=== PATIENT | female | born 1980 | race African-American/Black ===

== ENCOUNTER 2016-09-29 20:17 | Emergency (ER) | payer OTHER ==
[~2016-09-29] VITALS: Ht 165.1 cm; Wt 107.0 kg
--- NOTE | 2016-09-29 20:19 | ED DYSPNEA/ASTHMA COMPLAINT ---
See Addendum History of Present Illness General Chief Complaint: Dyspnea (COPD, CHF, Other) Stated Complaint: SOB Source: patient Exam Limitations: no limitations Vital Signs & Intake/Output Vital Signs & Intake/Output Vital Signs Date Time Temp Pulse Resp B/P Pulse O2 O2 Flow FiO2 Ox Delivery Rate 09/29 2241 95 20 154/74 100 Room Air 09/29 2017 97.2 110 22 165/72 100 Aerosol 5.0L Mask ED Intake and Output 09/30 0000 09/29 1200 Intake Total 20 Output Total Balance 20 Intake, Oral 20 Patient 236 lb Weight Allergies Coded Allergies: No Known Allergies (09/29/16) Reconcile Medications Albuterol Sulfate (Proventil Hfa) 90 MCG HFA.AER.AD 2 PUF INH AD PRN ASTHMA ( Reported) Albuterol Sulfate (Ventolin Hfa) 90 MCG HFA.AER.AD 2 PUF INH Q4-6 PRN PRN WHEEZE Amlodipine (Norvasc) 2.5 MG TABLET 1 TAB PO DAILY BP (Reported) Fluticasone Propionate/Salme (Advair Hfa 230-21 Mcg Inhaler) (Unknown Strength) HFA.AER.AD (Unknown Dose) INH BID ASTHMA (Reported) Pantoprazole Sodium (Unknown Strength) TABLET.DR (Unknown Dose) PO DAILY GI ( Reported) Prednisone 50 MG TABLET 1 TAB PO DAILY ASTHMA EXACERBATION Triage Nurses Notes Reviewed? yes Onset: Abrupt Duration: hour(s): Timing: single episode today Severity: moderate Activities at Onset: none Prior Episodes/Possible Cause: occasional episodes Modifying Factors: Improves With: rest, other (feels better w/nebs in field). Associated Symptoms: cough, wheezing HPI: 36 yo woman h/o asthma, presents with wheezing and cough that started at approximately 6:30pm. She notes no known exacerbants, except that she [facility]. She denies fever, phlegm, chest pain, lower extremity swelling. With her dyspnea, she called 911, she received 2 nebs en route and is now feeling better. Past History Travel History Traveled to [place] past 21 day No Medical History Any Pertinent Medical History? see below for history Respiratory: asthma Surgical History Surgical History: none Family History Hx Contributory? No Review of Systems Review of Systems Constitutional: Reports: no symptoms. EENTM: Reports: no symptoms. Respiratory: Reports: no symptoms. Cardiovascular: Reports: no symptoms. GI: Reports: no symptoms. Genitourinary: Reports: no symptoms. Musculoskeletal: Reports: no symptoms. Skin: Reports: no symptoms. Neurological/Psychological: Reports: no symptoms. Hematologic/Endocrine: Reports: no symptoms. Immunologic/Allergic: Reports: no symptoms. All Other Systems: Reviewed and Negative Physical Exam Physical Exam General Appearance: well developed/nourished, mild distress Head: atraumatic, normal appearance Eyes: Bilateral: normal appearance. Ears, Nose, Throat: normal pharynx, normal ENT inspection Neck: normal inspection, supple, full range of motion Respiratory: wheezing, prolonged expiratory phase Cardiovascular: regular rate/rhythm Gastrointestinal: normal bowel sounds, soft, non-tender, no organomegaly Extremities: normal inspection Neurologic/Psych: no motor/sensory deficits, awake, alert, oriented x 3 Skin: intact, normal color, warm/dry Core Measures ACS in differential dx? No Severe Sepsis Present: No Septic Shock Present: No Progress Differential Diagnosis: asthma, bronchitis, pneumonia Plan of Care: Orders Procedure Date/time Status XRY-CHEST XRAY, PA AND LATERAL 09/29 2019 Active Current Medications Sig/Valerio Start time Last Medication Dose Stop Time Status Admin Prednisone 60 MG ONCE ONE 09/29 2029 UNVr 09/29 2030 Diagnostic Imaging: Viewed by Me: Radiology Read. Discussed w/RAD: Radiology Read. CXR Impression: no acute abnormality, no infiltrates, normal size heart, normal mediastinum Initial ED EKG: none Comments: PATIENT: JUSTINO CLARKE PRESENT AGE: 36 PATIENT ACCOUNT NO: [id number] : 81 LOCATION: [facility] ORDERING PHYSICIAN: ROCKY JACK MD SERVICE DATE: 09/29/16 EXAM TYPE: RAD - XRY-CHEST XRAY, PA AND LATERAL EXAMINATION: XR CHEST CLINICAL INFORMATION: Dyspnea. COMPARISON: None. TECHNIQUE: PA and lateral views of the chest were obtained. FINDINGS: The lungs are hypoinflated but clear without focal airspace consolidation. No pleural effusions or pneumothoraces are identified. Cardiomediastinal contours are within normal limits. Soft tissues are unremarkable. No acute osseous abnormality is identified. IMPRESSION: Pulmonary hypoinflation. No acute cardiopulmonary abnormality. DICTATED BY: JESSICA WEIR MD DATE/TIME DICTATED:01/07/17 / 2148 RESISTANCE WELDER:LUCAS DATE/TIME TRANSCRIBED:09/29/162147 CONFIDENTIAL, DO NOT COPY WITHOUT APPROPRIATE AUTHORIZATION. <Electronically signed in Other Vendor System> SIGNED BY: JESSICA WEIR MD 09/29/162151 Departure Departure Disposition: HOME OR SELF CARE Condition: Stable Clinical Impression Primary Impression: Asthma exacerbation Departure Forms: Customer Survey General Discharge Information Prescriptions: Current Visit Scripts Prednisone 1 TAB PO DAILY #5 TAB Albuterol Sulfate (Ventolin Hfa) 2 PUF INH Q4-6 PRN PRN WHEEZE #1 INHAL Ref 2 Comments 09/30/16, 0:14... pt feeling well after neb/steroids... I doubt bacterial process... pt unable to get ride back [facility].... Pt to spend night in ED to be discharged in AM. Critical Care Note Critical Care Note Critical Care Time: non-applicable
[2016-09-29] MEDS ORDERED: PROVENTIL HFA6.7 GM INH (20:23)
[2016-09-29] MEDS ORDERED: ADVAIR HFA 230-12 GM INH (20:24)
[2016-09-29] MEDS ORDERED: NORVASC2.5 M1 PO (20:24)
[2016-09-29] MEDS ORDERED: PANTOPRAZOLE SO40 M1 PO (20:25)
--- NOTE | 2016-09-29 21:52 | RADIOLOGY REPORT ---
EXAMINATION: XR CHEST CLINICAL INFORMATION: Dyspnea. COMPARISON: None. TECHNIQUE: PA and lateral views of the chest were obtained. FINDINGS: The lungs are hypoinflated but clear without focal airspace consolidation. No pleural effusions or pneumothoraces are identified. Cardiomediastinal contours are within normal limits. Soft tissues are unremarkable. No acute osseous abnormality is identified. IMPRESSION: Pulmonary hypoinflation. No acute cardiopulmonary abnormality.
[2016-09-29] MEDS ORDERED: PREDNISONE50 M1 PO (23:48)
[2016-09-29] MEDS ORDERED: VENTOLIN HFA18 GM INH (23:48)
[2016-09-30 08:12] VITALS: BP 140/80
== END 2016-09-29 23:30 ==
LOC: ERH 20:17
DX: J45.901 Unspecified asthma with (acute) exacerbation (principal)

== ENCOUNTER 2016-11-02 19:45 | Emergency (ER) | payer OTHER ==
[~2016-11-02] VITALS: Ht 160 cm; Wt 112.0 kg
[~2016-11-02 19:45] MED LIST: ADVAIR HFA 230-12 GM INH; NORVASC2.5 M1 PO; PANTOPRAZOLE SO40 M1 PO; PREDNISONE50 M1 PO; PROVENTIL HFA6.7 GM INH; VENTOLIN HFA18 GM INH
--- NOTE | 2016-11-02 20:13 | ED DYSPNEA/ASTHMA COMPLAINT ---
History of Present Illness General Chief Complaint: Wheezing/Asthma Stated Complaint: BIBA FOR ASTHMA ATTACK Source: patient Exam Limitations: no limitations Vital Signs & Intake/Output Vital Signs & Intake/Output Vital Signs Date Time Temp Pulse Resp B/P Pulse O2 O2 Flow FiO2 Ox Delivery Rate 11/02 2054 93 18 123/60 99 Room Air 11/02 2005 100 Room Air 11/02 1958 97.6 100 20 138/66 100 Room Air ED Intake and Output 11/03 0000 11/02 1200 Intake Total 240 Output Total Balance 240 Intake, Oral 240 Patient 247 lb Weight Allergies Coded Allergies: No Known Allergies (09/29/16) Reconcile Medications Albuterol Sulfate (Ventolin Hfa) 90 MCG HFA.AER.AD 2 PUF INH Q4-6 PRN PRN WHEEZE Albuterol Sulfate 1.25 MG/3 ML VIAL.NEB 1 Vial INH/LIA Q4-6 PRN WHEEZING Amlodipine (Norvasc) 2.5 MG TABLET 1 TAB PO DAILY BP (Reported) Cholecalciferol (Vitamin D3) (Vitamin D) (Unknown Strength) TABLET (Unknown Dose) PO DAILY SUPPLEMENT (Reported) Fluticasone Propionate/Salme (Advair Hfa 230-21 Mcg Inhaler) (Unknown Strength) HFA.AER.AD (Unknown Dose) INH BID ASTHMA (Reported) Methylprednisolone. (Medrol) 4 MG TAB.DS.PK 1 DP PO AD INFLAMMATION 6 on day 1 then reduce by one tablet daily until gone Montelukast Sodium (Singulair) 10 MG TABLET 1 TAB PO DAILY ASTHMA (Reported) Pantoprazole Sodium (Unknown Strength) TABLET.DR (Unknown Dose) PO DAILY GI ( Reported) Sertraline HCl (Zoloft) (Unknown Strength) TABLET (Unknown Dose) PO DAILY MENTAL HEALTH (Reported) Trazodone HCl (Unknown Strength) TABLET (Unknown Dose) PO QPM MENTAL HEALTH ( Reported) Triage Note: PATIENT A&O, NO RESP DISTRESS, MILD SOB Triage Nurses Notes Reviewed? yes Onset: Gradual Duration: constant Timing: single episode today Severity: moderate Activities at Onset: activity Prior Episodes/Possible Cause: frequent episodes : No Patient currently breastfeeds: No HPI: Patient is a 36-year-old female who has a past medical history of asthma who presents to emergency room saying that this evening while eating chicken she states that she began throwing this food up and what had 1 episode of nonbloody nonbilious emesis however immediately after patient started coughing and wheezing in which her symptoms were unrelieved with her at home inhaler and nebulizer treatment Patient denies any abdominal pain fever chills current nausea or vomiting Patient does not smoke (WIL AL) Past History Travel History Traveled to [place] past 21 day No Medical History Any Pertinent Medical History? 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 No (WIL AL) Review of Systems Review of Systems Constitutional: Reports: no symptoms. EENTM: Reports: no symptoms. Respiratory: Reports: see HPI, cough, wheezing. Cardiovascular: Reports: no symptoms. GI: Reports: see HPI, vomiting. Genitourinary: Reports: no symptoms. Musculoskeletal: Reports: no symptoms. Skin: Reports: no symptoms. Neurological/Psychological: Reports: no symptoms. Hematologic/Endocrine: Reports: no symptoms. Immunologic/Allergic: Reports: no symptoms. All Other Systems: Reviewed and Negative (WIL AL) Physical Exam Physical Exam General Appearance: no apparent distress, obese Respiratory: no respiratory distress, wheezing Comments: Well-developed well-nourished person in no acute distress HEENT: Normal EENT exam, . Neck: Supple, no lymphadenopathy, normal range of motion without pain or tenderness Back: Nontender, no CVA tenderness. Cardiovascular: Regular rate and rhythms no murmurs rubs or gallops, normal JVP Respiratory: Chest nontender. No respiratory distress.breath sounds clear to auscultation bilaterally Abdomen: Soft, nontender nondistended, no appreciable organomegaly. Normal bowel sounds. No ascites Extremity: No edema, no calf tenderness to palpation, normal and equal pulses. Neuro: Alert oriented x3, motor sensory normal, Skin: No appreciable rash on exposed skin, skin is warm and dry. Psych: Mood and affect is normal, memory and judgment is normal. Core Measures ACS in differential dx? No Severe Sepsis Present: No Septic Shock Present: No (WIL AL) Progress Differential Diagnosis: asthma, AMI, bronchitis, costochondritis, CHF, COPD, musculoskeletal pain, pericarditis, pulmonary embolism, pneumonia, pneumothorax, rib fracture, unstable angina Plan of Care: Current Medications Sig/Valerio Start time Last Medication Dose Stop Time Status Admin Albuterol Sulfate 3 ML ONCE ONE 11/02 2044 UNVr (Proventil) 11/02 2045 Prednisone 60 MG ONCE ONE 11/02 2044 UNVr 11/02 2045 Patient has nontender abdomen and was able tolerate by mouth in the emergency room. Patient shows no respiratory distress oxygenation saturation 100% room air. Patient was given nebulizer treatments and had significant resolution of wheezing. On discharge patient looks well no apparent distress nontoxic- appearing and will comply with discharge INSTRUCTIONS AND had no questions (WIL AL) Initial ED EKG: none (WIL AL) Departure Departure Disposition: HOME OR SELF CARE Condition: Stable Clinical Impression Primary Impression: Asthma exacerbation Referrals: UNKNOWN (PCP/Family) Additional Instructions: As discussed continue your inhaler medications as directed. Begin the prescription of Medrol Dosepak for inflammation however start this medication tomorrow as he received prednisone in the emergency room today. Begin the prescription of albuterol for nebulizer treatments as directed. If symptoms worsen return to the emergency room. If no better on Saturday follow-up with primary care doctor. Prescription is waiting at [facility] pharmacy Departure Forms: Customer Survey General Discharge Information Prescriptions: Current Visit Scripts Albuterol Sulfate 1 Vial INH/LIA Q4-6 PRN WHEEZING #150 ML Methylprednisolone. (Medrol) 1 DP PO AD #1 DP 6 on day 1 then reduce by one tablet daily until gone (WIL AL) PA/LEGAL DIRECTOR Co-Sign Statement Statement: ED Attending supervision documentation- [] I saw and evaluated the patient. I have also reviewed all the pertinent lab results and diagnostic results. I agree with the findings and the plan of care as documented in the PA's/LEGAL DIRECTOR's documentation. [x] I have reviewed the ED Record and agree with the PA's/LEGAL DIRECTOR's documentation. [] Additions or exceptions (if any) to the PAs/LEGAL DIRECTOR's note and plan are summarized below: [] (GUERO TAYLOR,ROCKY Liu) Critical Care Note Critical Care Note Critical Care Time: non-applicable (WIL AL)
[2016-11-02] MEDS ORDERED: TRAZODONE HCL50 M1 PO (20:16)
[2016-11-02] MEDS ORDERED: ZOLOFT25 M1 PO (20:16)
[2016-11-02] MEDS ORDERED: VITAMIN D2000 UNI1 PO (20:17)
[2016-11-02] MEDS ORDERED: SINGULAIR10 M1 PO (20:17)
[2016-11-02 20:55] VITALS: BP 123/60
[2016-11-02] MEDS ORDERED: ALBUTEROL1.25 MG/1 INH/SOL (21:19)
[2016-11-02] MEDS ORDERED: MEDROL4 M2 PO (21:19)
[2016-11-03] MEDS ORDERED: IBUPROFEN600 M1 PO (16:58)
== END 2016-11-02 21:33 ==
LOC: ERH 19:45
DX: J45.901 Unspecified asthma with (acute) exacerbation (principal)
CPT/HCPCS: 1263

== ENCOUNTER 2016-11-03 15:26 | Emergency (ER) | payer OTHER ==
[~2016-11-03] VITALS: Ht 157.5 cm; Wt 116.1 kg
[~2016-11-03 15:26] MED LIST changes: +ALBUTEROL1.25 MG/1 INH/SOL; +MEDROL4 M2 PO; +SINGULAIR10 M1 PO; +TRAZODONE HCL50 M1 PO; +VITAMIN D2000 UNI1 PO; +ZOLOFT25 M1 PO
[2016-11-03 15:38] VITALS: BP 137/75
--- NOTE | 2016-11-03 15:43 | ED UPPER/LOWER EXTREMITY COMPL ---
History of Present Illness General Chief Complaint: General Adult Stated Complaint: PT RG ARM IS SWOLLEN ,WAS HERE 11/02 FOR IV Source: patient, old records Exam Limitations: no limitations Vital Signs & Intake/Output Vital Signs & Intake/Output Vital Signs Date Time Temp Pulse Resp B/P Pulse O2 O2 Flow FiO2 Ox Delivery Rate 11/03 1538 97.6 93 18 137/75 97 Room Air Allergies Coded Allergies: No Known Allergies (09/29/16) Reconcile Medications Albuterol Sulfate (Ventolin Hfa) 90 MCG HFA.AER.AD 2 PUF INH Q4-6 PRN PRN WHEEZE Albuterol Sulfate 1.25 MG/3 ML VIAL.NEB 1 Vial INH/LIA Q4-6 PRN WHEEZING Amlodipine (Norvasc) 2.5 MG TABLET 1 TAB PO DAILY BP (Reported) Cholecalciferol (Vitamin D3) (Vitamin D) (Unknown Strength) TABLET (Unknown Dose) PO DAILY SUPPLEMENT (Reported) Fluticasone Propionate/Salme (Advair Hfa 230-21 Mcg Inhaler) (Unknown Strength) HFA.AER.AD (Unknown Dose) INH BID ASTHMA (Reported) Ibuprofen 600 MG TABLET 1 TAB PO TID PRN pain with food Methylprednisolone. (Medrol) 4 MG TAB.DS.PK 1 DP PO AD INFLAMMATION 6 on day 1 then reduce by one tablet daily until gone Montelukast Sodium (Singulair) 10 MG TABLET 1 TAB PO DAILY ASTHMA (Reported) Pantoprazole Sodium (Unknown Strength) TABLET.DR (Unknown Dose) PO DAILY GI ( Reported) Sertraline HCl (Zoloft) (Unknown Strength) TABLET (Unknown Dose) PO DAILY MENTAL HEALTH (Reported) Trazodone HCl (Unknown Strength) TABLET (Unknown Dose) PO QPM MENTAL HEALTH ( Reported) Triage Note: 36 YO FEMALE TO ER. STATES SHE WAS SEEN HERE LAST PM FOR ASTHMA ATTACK AND THE DIRECTOR CAREER SERVICES PLACED AN IV IN THE RAC. STATES R ARM IS PAINFUL FROM ELBOW DOWN, STATES ARM IS TINGLING NOW. PT STATES SHE IS UNABLE TO MOVE R ARM D/T THE PAIN Triage Nurses Notes Reviewed? yes Onset: Gradual Duration: getting worse Timing: recent history Severity: severe Severity Numbers: 7 : No Patient currently breastfeeds: No HPI: Patient is a 36-year-old female who was evaluated by me yesterday at [facility] emergency room for concerns of asthma exacerbation which patient received IV access to her right antecubital fossa. Patient states after the removal of the IV she started complaining of a gradual onset of right forearm and distal extremity swelling and pain. Denies any shortness of breath chest pain denies any erythema. No history of DVT or PE. (WIL AL) Past History Travel History Traveled to [place] past 21 day No Medical History Any Pertinent Medical History? 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 No (WIL AL) Review of Systems Review of Systems Constitutional: Reports: no symptoms. EENTM: Reports: no symptoms. Respiratory: Reports: no symptoms. Cardiovascular: Reports: peripheral edema. Gastrointestinal/Abdominal: Reports: no symptoms. Genitourinary: Reports: no symptoms. Musculoskeletal: Reports: see HPI, muscle pain. Skin: Reports: no symptoms. Neurological/Psychological: Reports: no symptoms. Hematologic/Endocrine: Reports: no symptoms. Immunological: Reports: no symptoms. All Other Systems: Reviewed and Negative (WIL AL) Physical Exam Physical Exam General Appearance: no apparent distress, alert, comfortable Neurologic/Tendon: normal sensation, normal motor functions, normal tendon functions, responds to pain, no evidence tendon injury, no pulse deficit Skin: intact, normal color, warm/dry Comments: Well-developed well-nourished no apparent distress. HEENT: Atraumatic, extraocular motion intact Neck: Supple, no lymphadenopathy Back: Nontender Respiratory: No respiratory distress Extremities: Right upper extremity No erythema noted mild swelling noted distally of the elbow no erythematous tracking Dermatomes intact real pulse +2 Capillary refill less than 2 seconds Neuro: Alert and oriented x3 Psych: Mood affect normal, normal memory normal judgment. (WIL AL) Progress Differential Diagnosis: arterial insufficiency, cellulitis, CHF, compartment syndrome, contusion, dislocation, DVT, fracture, gout, septic arthritis, sprain, tendon injury, SUPERFICIAL THROMBOPHLEBITIS Plan of Care: Orders Procedure Date/time Status US-UNILATERAL VENOUS DOPPLER 11/03 3421 Active Patient currently is in no apparent distress and had no concerns of vascular or neurovascular compromise of the right upper extremity. Ultrasound ruled out DVT. Patient most likely due to history of present illness and exam findings has concerns of superficial thrombophlebitis. (WIL AL) Diagnostic Imaging: Viewed by Me: Ultrasound. Radiology Impression: no acute abnormality Comments: PATIENT: JUSTINO CLARKE PRESENT AGE: 36 PATIENT ACCOUNT NO: [id number] : 81 LOCATION: ER ORDERING PHYSICIAN: WIL DENNY SERVICE DATE: 11/03/16 EXAM TYPE: US - US-UNILATERAL VENOUS DOPPLER EXAMINATION: US TRIPLEX UPPER EXTREMITY, RIGHT CLINICAL INFORMATION: Right upper extremity pain, swelling. COMPARISON: None TECHNIQUE: Color-flow triplex imaging with spectral analysis and compression Doppler were performed on the right upper extremity. FINDINGS: The right internal jugular, innominate, subclavian, axillary, brachial, basilic, cephalic veins are widely patent. IMPRESSION: Normal triplex scan without evidence of deep venous thrombosis involving the right upper extremity. (WIL AL) Departure Departure Disposition: HOME OR SELF CARE Condition: Stable Clinical Impression Primary Impression: Superficial thrombophlebitis Referrals: UNKNOWN (PCP/Family) Additional Instructions: As discussed begin the prescription of ibuprofen for pain and inflammation. Begin to elevate arm for swelling. Begin to apply warm compresses to the area. If no better in 3 days follow-up with primary care doctor. If symptoms worsen return to emergency room Prescriptions are waiting at [facility] pharmacy Departure Forms: Customer Survey General Discharge Information Prescriptions: Current Visit Scripts Ibuprofen 1 TAB PO TID PRN pain #21 TAB with food (WIL AL) PA/BILL CLERK Co-Sign Statement Statement: ED Attending supervision documentation- [] I saw and evaluated the patient. I have also reviewed all the pertinent lab results and diagnostic results. I agree with the findings and the plan of care as documented in the PA's/BILL CLERK's documentation. x I have reviewed the ED Record and agree with the PA's/BILL CLERK's documentation. [] Additions or exceptions (if any) to the PAs/BILL CLERK's note and plan are summarized below: [] (CHRIS TAYLOR,JUSTA)
--- NOTE | 2016-11-03 16:46 | ULTRASOUND REPORT ---
EXAMINATION: US TRIPLEX UPPER EXTREMITY, RIGHT CLINICAL INFORMATION: Right upper extremity pain, swelling. COMPARISON: None TECHNIQUE: Color-flow triplex imaging with spectral analysis and compression Doppler were performed on the right upper extremity. FINDINGS: The right internal jugular, innominate, subclavian, axillary, brachial, basilic, cephalic veins are widely patent. IMPRESSION: Normal triplex scan without evidence of deep venous thrombosis involving the right upper extremity.
[2016-11-03] MEDS ORDERED: IBUPROFEN600 M1 PO (16:58)
== END 2016-11-03 18:48 ==
LOC: ERH 15:26
DX: I80.8 Phlebitis and thrombophlebitis of other sites (principal)

== ENCOUNTER 2016-12-11 18:00 | Emergency (ER) | payer OTHER ==
[~2016-12-11] VITALS: Ht 165.1 cm; Wt 115.7 kg
[~2016-12-11 18:00] MED LIST changes: +IBUPROFEN600 M1 PO
[2016-12-11 18:04] VITALS: BP 139/68
--- NOTE | 2016-12-11 18:12 | ED DYSPNEA/ASTHMA COMPLAINT ---
History of Present Illness General Chief Complaint: Wheezing/Asthma Stated Complaint: BIBA FOR ASTHMA ATTACK Source: patient, old records, EMS Exam Limitations: no limitations Vital Signs & Intake/Output Vital Signs & Intake/Output Vital Signs Date Time Temp Pulse Resp B/P Pulse O2 O2 Flow FiO2 Ox Delivery Rate 12/11 1820 96 12/11 1814 99 Room Air 12/11 1810 100 Room Air 12/11 1804 97.6 109 20 139/68 100 Aerosol Mask ED Intake and Output 12/12 0000 12/11 1200 Intake Total Output Total Balance Patient 255 lb Weight Allergies Coded Allergies: No Known Allergies (09/29/16) Reconcile Medications Albuterol Sulfate (Ventolin Hfa) 90 MCG HFA.AER.AD 2 PUF INH Q4-6 PRN PRN WHEEZE Albuterol Sulfate 1.25 MG/3 ML VIAL.NEB 1 Vial INH/LIA Q4-6 PRN WHEEZING Amlodipine (Norvasc) 2.5 MG TABLET 1 TAB PO DAILY BP (Reported) Amoxicillin (Unknown Strength) CAPSULE (Unknown Dose) PO Q12H ANTIBIOTIC ( Reported) Cholecalciferol (Vitamin D3) (Vitamin D) (Unknown Strength) TABLET (Unknown Dose) PO DAILY SUPPLEMENT (Reported) Fluticasone Propionate/[place]me (Advair Hfa 115-21 Mcg Inhaler) 115 MCG-21 MCG/ ACTUATION HFA.AER.AD 2 PUFF INH BID ASTHMA (Reported) Methylprednisolone. (Medrol) 4 MG TAB.DS.PK 1 DP PO AD breathing Montelukast Sodium (Singulair) 10 MG TABLET 1 TAB PO DAILY ASTHMA (Reported) Pantoprazole Sodium (Unknown Strength) TABLET.DR (Unknown Dose) PO DAILY GI ( Reported) Sertraline HCl (Zoloft) (Unknown Strength) TABLET (Unknown Dose) PO DAILY MENTAL HEALTH (Reported) Trazodone HCl (Unknown Strength) TABLET (Unknown Dose) PO QPM MENTAL HEALTH ( Reported) Triage Note: BIBA FOR SOB/ASTHMA EXACERBATION. PT FELT SOB WHILE WALKING HOME FROM WORK. TOOK ALBUTEROL INHALER AND ADVAIR WITH NO RELIEF. PT RECEIVED 2 ALBUTEROL NEBS BY EMS AND FELT BETTER. UPON ARRIVAL PT CALM, IN NAD. 02 99% ON RA Triage Nurses Notes Reviewed? yes HPI: Patient is a 36-year-old female presents complaining of asthma exacerbation. Patient reports that she was at work at 3 PM when she had an acute onset of wheezing and nonproductive cough. Symptoms were severe, currently are mild. Patient used her albuterol inhaler twice with minimal improvement. Patient was administered 2 nebulizer treatments by EMS with moderate improvement. Patient continues with wheezing. Patient reports that she has been hospitalized previously for her asthma and was admitted to the ICU in September 2015 due to the need for continuous nebulizer therapy. Patient has never required intubation for her asthma. Denies fevers, chills, chest pain. (SHERRI WILSON) Past History Travel History Traveled to [place] past 21 day No Medical History Any Pertinent Medical History? 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 No (SHERRI WILSON) Review of Systems Review of Systems Constitutional: Denies: see HPI, fever. EENTM: Reports: no symptoms. Respiratory: Reports: see HPI. Cardiovascular: Denies: chest pain. GI: Denies: abdominal pain, vomiting. Musculoskeletal: Reports: no symptoms. Skin: Reports: no symptoms. Neurological/Psychological: Reports: no symptoms. Hematologic/Endocrine: Reports: no symptoms. Immunologic/Allergic: Reports: no symptoms. (SHERRI WILSON) Physical Exam Physical Exam General Appearance: well developed/nourished, alert, awake Head: atraumatic, normal appearance Eyes: Bilateral: normal appearance, PERRL, EOMI. Ears, Nose, Throat: normal pharynx, normal ENT inspection, hearing grossly normal Neck: normal inspection, supple, full range of motion, no stridor Respiratory: no respiratory distress, expiratory wheezing, minimal diffuse lung singh. Wheezing appears primarily upper airway Cardiovascular: regular rate/rhythm (no appreciable murmur) Extremities: normal inspection, normal capillary refill, normal range of motion Neurologic/Psych: no motor/sensory deficits, awake, alert, oriented x 3, normal mood/affect Skin: intact, normal color, warm/dry Lymphatic: no anterior cervical sebastien Core Measures ACS in differential dx? No Severe Sepsis Present: No Septic Shock Present: No (SHERRI WILSON) Progress Differential Diagnosis: asthma, bronchitis, pulmonary embolism, pneumonia Plan of Care: Current Medications Sig/Valerio Start time Last Medication Dose Stop Time Status Admin Albuterol Sulfate 3 ML ONCE ONE 12/11 1829 UNVr (Proventil) 12/11 1830 Ipratropium [place] 2.5 ML ONCE ONE 12/11 1829 UNVr (Atrovent) 12/11 1830 Methylprednisolone 60 MG ONCE ONE 12/11 1829 UNVr (Solu Medrol) 12/11 183012/11/2016 7:03:34 PM: Patient reports feeling improved. Patient's lungs clear throughout, upper airway wheezing with forced deep exhalation. No wheezing when patient is taking normal breaths. Appears stable for discharge. (SHERRI WILSON) Initial ED EKG: none (SHERRI WILSON) Departure Departure Time of Disposition: 1903 Disposition: HOME OR SELF CARE Condition: Stable Clinical Impression Primary Impression: Asthma exacerbation Referrals: UNKNOWN Additional Instructions: Follow up with your primary doctor or putter in if no improvement within 1-2 days. Use your albuterol inhaler and nebulizer as directed. Return to the ER if worsening of symptoms. Departure Forms: Customer Survey General Discharge Information Prescriptions: Current Visit Scripts Methylprednisolone. (Medrol) 1 DP PO AD #1 DP (SHERRI WILSON) PA/INTEGRITY MANAGER Co-Sign Statement Statement: ED Attending supervision documentation- [] I saw and evaluated the patient. I have also reviewed all the pertinent lab results and diagnostic results. I agree with the findings and the plan of care as documented in the PA's/INTEGRITY MANAGER's documentation. [X] I have reviewed the ED Record and agree with the PA's/INTEGRITY MANAGER's documentation. [] Additions or exceptions (if any) to the PAs/INTEGRITY MANAGER's note and plan are summarized below: [] (MELANY TAYLOR,ERMA) Critical Care Note Critical Care Note Critical Care Time: non-applicable (SHERRI WILSON)
[2016-12-11] MEDS ORDERED: ADVAIR HFA 115-12 GM INH (18:49)
[2016-12-11] MEDS ORDERED: AMOXICILLIN500 M2 PO (18:50)
[2016-12-11] MEDS ORDERED: MEDROL4 M2 PO (19:05)
== END 2016-12-11 19:12 ==
LOC: ERH 18:00
DX: J45.901 Unspecified asthma with (acute) exacerbation (principal)
CPT/HCPCS: 1263; 96374; J2930

== ENCOUNTER 2016-12-26 18:51 | Emergency (ER) | payer OTHER ==
[~2016-12-26] VITALS: Ht 165.1 cm; Wt 111.1 kg
[~2016-12-26 18:51] MED LIST changes: +ADVAIR HFA 115-12 GM INH; +AMOXICILLIN500 M2 PO
[2016-12-26 19:01] VITALS: BP 118/79
[2016-12-26] MEDS ORDERED: CIPRO250 M1 PO (19:32)
--- NOTE | 2016-12-26 19:32 | ED ANKLE/FOOT INJURY COMPLAINT ---
History of Present Illness General Chief Complaint: Plantar Puncture Wound Stated Complaint: "STEPPED ON METAL EVETTE" R FOOT Source: patient Exam Limitations: no limitations Vital Signs & Intake/Output Vital Signs & Intake/Output Vital Signs Date Time Temp Pulse Resp B/P Pulse O2 O2 Flow FiO2 Ox Delivery Rate 12/26 1901 96.4 103 18 118/79 99 Room Air Allergies Coded Allergies: No Known Allergies (09/29/16) Triage Note: PUNCTURE WOUND TO BOTTOM OF R FOOT, STEPPED ON METAL EVETTE. C/O PAIN. NEEDS TETANUS SHOT. Triage Nurses Notes Reviewed? yes Occurred: just prior to arrival Duration: hour(s): (2) Timing: no prior history Severity: moderate Severity Numbers: 5 Pain/Injury Location: Right: Foot. Method of Injury: SHARP OBJECT Modifying Factors: Improves With: immobilization. Worsens With: movement. : No Patient currently breastfeeds: No HPI: Patient is a 36-year-old female presenting to the emergency department with chief complaint puncture wound to the right foot within just a few arthritic. Pain is throbbing currently moderate. Denies taking anything for pain.UNSURE OF Immunization. Denies cleaning the wound prior to arrival. She was wearing sneakers when it through her shoe. (JACQUI DENNY,ZAY) Reconcile Medications Albuterol Sulfate (Ventolin Hfa) 90 MCG HFA.AER.AD 2 PUF INH Q4-6 PRN PRN WHEEZE Albuterol Sulfate 1.25 MG/3 ML VIAL.NEB 1 Vial INH/LIA Q4-6 PRN WHEEZING Amlodipine (Norvasc) 2.5 MG TABLET 1 TAB PO DAILY BP (Reported) Amoxicillin (Unknown Strength) CAPSULE (Unknown Dose) PO Q12H ANTIBIOTIC ( Reported) Cholecalciferol (Vitamin D3) (Vitamin D) (Unknown Strength) TABLET (Unknown Dose) PO DAILY SUPPLEMENT (Reported) Ciprofloxacin HCl (Cipro) 250 MG TABLET 1 TAB PO BID prophylaxis Fluticasone Propionate/[place] (Advair Hfa 115-21 Mcg Inhaler) 115 MCG-21 MCG/ ACTUATION HFA.AER.AD 2 PUFF INH BID ASTHMA (Reported) Ibuprofen 600 MG TABLET 1 TAB PO TID PRN pain with food Methylprednisolone. (Medrol) 4 MG TAB.DS.PK 1 DP PO AD breathing Montelukast Sodium (Singulair) 10 MG TABLET 1 TAB PO DAILY ASTHMA (Reported) Pantoprazole Sodium (Unknown Strength) TABLET.DR (Unknown Dose) PO DAILY GI ( Reported) Sertraline HCl (Zoloft) (Unknown Strength) TABLET (Unknown Dose) PO DAILY MENTAL HEALTH (Reported) Trazodone HCl (Unknown Strength) TABLET (Unknown Dose) PO QPM MENTAL HEALTH ( Reported) (CASEY VARGAS DO) Past History Travel History Traveled to [place] past 21 day No Medical History Any Pertinent Medical History? 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 No (ZAY LEA) Review of Systems Review of Systems Constitutional: Reports: no symptoms. Comments Review of systems: See HPI, all other systems negative. Constitutional, no chills, no fever, no weight loss. HEENT: No visual changes, no sore throat, no congestion, Cardiovascular: No chest pain, no palpitations, no orthopnea, or ankle swelling. Skin: No jaundice, no rashes Respiratory, no dyspnea, cough, sputum, or hemoptysis GI no nausea, no vomiting no dysuria, no hematuria, Muscle skeletal: No back pain, no neck pain Neurologic, no numbness no confusion Psych: No stress, anxiety, depression Heme/endocrine: No bruising, no bleeding polyuria, polydipSIA Immunology: No splenectomy, no history of AIDS (ZAY LEA) Physical Exam Physical Exam General Appearance: well developed/nourished, no apparent distress, alert, awake , comfortable Leg/Knee/Thigh Left: normal range of motion Comments: Well-developed well-nourished no apparent distress. HEENT: Atraumatic, extraocular motion intact Neck: Supple, no lymphadenopathy Back: Nontender Respiratory: No respiratory distress Extremities: No edema, full range of motion SKIN: PUNCTURE WOUND APPROX 5MM ON BALL OF RIGHT FOOT. NO SURROUNDING EREYTHEMA OR EDEMA. NO FB. Neuro: Alert and oriented x3 Psych: Mood affect normal, normal memory normal judgment. (ZAY LEA) Progress Differential Diagnosis: cellulitis, fracture, dislocation, sprain, contusion, PUNCTURE WOUND Plan of Care: Current Medications Sig/Valerio Start time Last Medication Dose Stop Time Status Admin Tetanus/Diphtheria 0.5 ML ONCE ONE 12/26 1929 UNVr Toxoids Adsorbed 12/26 1930 (Decavac) Departure Departure Time of Disposition: 1929 Disposition: HOME OR SELF CARE Condition: Stable Clinical Impression Primary Impression: Puncture wound Referrals: UNKNOWN (PCP/Family) Additional Instructions: Follow-up with your primary care physician call to make an appointment. Keep wound clean, warm soaks daily. Apply bacitracin daily. Take antibiotics to help prevent infection. Departure Forms: Customer Survey General Discharge Information (ZAY LEA) Departure Prescriptions: Current Visit Scripts Ciprofloxacin HCl (Cipro) 1 TAB PO BID #10 TAB Ibuprofen 1 TAB PO TID PRN pain #30 TAB with food PA/LIFE CLAIMS EXAMINER Co-Sign Statement Statement: ED Attending supervision documentation- [] I saw and evaluated the patient. I have also reviewed all the pertinent lab results and diagnostic results. I agree with the findings and the plan of care as documented in the PA's/LIFE CLAIMS EXAMINER's documentation. [x] I have reviewed the ED Record and agree with the PA's/LIFE CLAIMS EXAMINER's documentation. [] Additions or exceptions (if any) to the PAs/LIFE CLAIMS EXAMINER's note and plan are summarized below: [] (CASEY VARGAS DO) Procedures Additional Procedures Additional Procedures: WOUND CARE Progress: Wound was cleaned with Betadine and saline. Bacitracin placed. Patient tolerated epithelial. (ZAY LEA)
[2016-12-26] MEDS ORDERED: IBUPROFEN600 M1 PO (19:55)
== END 2016-12-26 20:06 ==
LOC: ERH 18:51
DX: S91.331A Puncture wound without foreign body, right foot, initial encounter (principal); W45.8XXA Other foreign body or object entering through skin, initial encounter; Y92.9 Unspecified place or not applicable; Y93.9 Activity, unspecified
CPT/HCPCS: 90471; 90714

== ENCOUNTER 2018-04-09 14:36 | Emergency (ER) | payer OTHER ==
[~2018-04-09] VITALS: Ht 172.7 cm; Wt 81.6 kg
[~2018-04-09 14:36] MED LIST changes: +CIPRO250 M1 PO; +GUAIFENESIN AC473 M2 PO; +PREDNISONE10 M2 PO
--- NOTE | 2018-04-09 14:48 | ED GENERAL PEDIATRIC ---
History of Present Illness General Chief Complaint: Wheezing/Asthma Stated Complaint: BIBA ASTHMA EXACERBATION Source: patient Exam Limitations: no limitations Vital Signs & Intake/Output Vital Signs & Intake/Output Vital Signs Date Time Temp Pulse Resp B/P B/P Pulse O2 O2 Flow FiO2 Mean Ox Delivery Rate 04/09 1438 97.7 88 23 146/74 100 Room Air Room Air Allergies Coded Allergies: No Known Allergies (09/29/16) Reconcile Medications Albuterol Sulfate (Ventolin Hfa) 90 MCG HFA.AER.AD 2 PUF INH Q4-6 PRN PRN WHEEZE Albuterol Sulfate 1.25 MG/3 ML VIAL.NEB 1 Vial INH/LIA Q4-6 PRN WHEEZING Amlodipine (Norvasc) 2.5 MG TABLET 1 TAB PO DAILY BP (Reported) Codeine Phosphate/Guaifenesi (Guaifenesin AC Cough Syrup) 10 MG-100 MG/5 ML LIQUID 10 ML PO Q4 PRN Coughing . Fluticasone Propionate/[place] (Advair Hfa 115-21 Mcg Inhaler) 115 MCG-21 MCG/ ACTUATION HFA.AER.AD 2 PUFF INH BID ASTHMA (Reported) Pantoprazole Sodium 40 MG TABLET.DR 40 MG PO DAILY GI (Reported) Prednisone 10 MG TABLET 10 MG PO SI ASTHMA EXACERBATION . Triage Note: pt coming from work. started to get wheezy an could not breath. took 4 pumps off inhaler. ems arrived 100% room air, wheezes throughout lungs. given duoneb. pt has hx of asthma. Triage Nurses Notes Reviewed? yes HPI: Patient is a 37-year-old female with past medical history of asthma, never intubated but admitted several times in the past with most recent steroid use being 3 months ago, who presents with severe wheezing. 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 No Psychosocial History Who does the child live with? Family Services at Home: None Child's primary language? Palestinian Family History Hx Contributory? No Review of Systems Review of Systems Constitutional: Reports: see HPI. EENTM: Reports: no symptoms. Respiratory: Reports: short of breath, wheezing. Denies: sputum production, stridor. Cardiovascular: Reports: no symptoms. GI: Reports: no symptoms. Genitourinary: Reports: no symptoms. Musculoskeletal: Reports: no symptoms. Skin: Reports: no symptoms. Neurological/Psychological: Reports: no symptoms. Hematologic/Endocrine: Reports: no symptoms. Immunologic/Allergic: Reports: no symptoms. All Other Systems: Reviewed and Negative Physical Exam Physical Exam General Appearance: moderate distress Comments: HEENT: Inspection of the head reveals a normocephalic cranium with no signs of trauma. Ophtho: Extraocular muscles are intact and pupils are equal and reactive to light bilaterally with no afferent pupillary defect. The sclera are noninjected , and there is no obvious discharge. Neck: The trachea is midline, there is no obvious asymmetry or mass over the thyroid, and there is no midline cervical spine tenderness Respiratory: Diffuse and moderate expiratory wheezing in all lung singh with increased work of breathing, but able to speak in full sentences and maintain oxygen saturation above 96% on room air. Cardiac: Regular rhythm and non-tachycardic without appreciable murmurs on auscultation. No obvious JVD. GI: No major abdominal pain. : Deferred Neuro: The patient is oriented to person, place, time, and situation, with no obvious focal motor deficits. There were no sensory deficits, and the patient exhibit purposeful movement of all 4 extremities. Cranial nerves II through XII are intact, and gait is normal. Behavioral: Anxious regarding symptoms. Dermatologic: Dermatologic examination reveals no diffuse rashes or exanthems, no petechiae, no ecchymoses, and no other signs of erythema or infection. Core Measures Sepsis Present: No Sepsis Focused Exam Completed? No Progress Differential Diagnosis: Asthma, upper respiratory infection Plan of Care: Current Medications Sig/Valerio Start time Last Medication Dose Stop Time Status Admin Dexamethasone 8 MG ONCE ONE 04/09 1500 UNVr (Decadron) 04/09 1501 Albuterol Sulfate 3 ML ONCE ONE 04/09 1445 UNVr (Proventil) 04/09 1446 Ipratropium [place] 2.5 ML ONCE ONE 04/09 1445 UNVr (Atrovent) 04/09 1446 Comments: Patient presented today with symptoms consistent with her chronic asthma. She does not have a home nebulizer. The patient was placed on a continuous cardiopulmonary monitor immediately upon arrival and supplemental oxygen was delivered via nasal cannula. Inhaled bronchodilators/anticholinergics and oral corticosteroids were administered here in the emergency department, and the patient was reevaluated multiple times. They experienced relentless clinical improvement, and examination after the previously-described therapies revealed normal work of breathing. The patient requests discharge, which I feel is reasonable. The patient will be provided with rescue medications and a short course of oral corticosteroids. They are to follow up with their primary care physician for further evaluation and management. Alternatively, they are to immediately return to the ED with any questions or concerns. All of the patient' s questions were answered to their satisfaction, and they verbalized understanding of their diagnosis/need for close follow up. At this point, the precise etiology of the patient's current symptom complex is unclear. However, I favor an acute exacerbation of the patient's chronic asthma/reactive airway disease as the most likely etiology considering their personal history of this condition coupled with their fairly classic history/physical examination findings. I feel that pulmonary embolus is less likely secondary to the fact that the patient is PERC-negative as well as the fact that I feel that an acute exacerbation of the patient's chronic asthma is a more likely diagnosis. Chest radiography was not felt to be necessary today given the lack of focal findings and the appropriate improvement. The patient's symptoms are rather atypical for acute coronary syndrome; therefore, I feel that further evaluation directed towards such can be deferred at this time. However, the remote but distinct possibility of occult pathology was explained in detail to the patient, who verbalized excellent understanding. Departure Departure Time of Disposition: 1616 Disposition: HOME OR SELF CARE Condition: Stable Clinical Impression Primary Impression: Asthma exacerbation Qualifiers: Asthma severity: moderate Asthma persistence: unspecified Qualified Code: J45.901 - Unspecified asthma with (acute) exacerbation Referrals: Patient Has No Primary Care Dr Additional Instructions: Please use the prednisone that we prescribed 2 year pharmacy and make an appointment with your primary doctor for reassessment. We recommend that you ask for a nebulizer machine to use at home. Departure Forms: Customer Survey General Discharge Information Prescriptions: Current Visit Scripts Prednisone 3 TAB PO DAILY #15 TAB
[2018-04-09] MEDS ORDERED: PREDNISONE20 M1 PO (16:18)
[2018-04-09 16:31] VITALS: BP 127/79
== END 2018-04-09 16:45 ==
LOC: ERH 14:36
DX: J45.901 Unspecified asthma with (acute) exacerbation (principal)
CPT/HCPCS: 96374

== ENCOUNTER 2018-06-04 17:59 | Emergency (ER) | payer OTHER ==
[~2018-06-04] VITALS: Ht 165.1 cm; Wt 109.8 kg
[~2018-06-04 17:59] MED LIST changes: +MONTELUKAST SOD10 M1 PO; +PREDNISONE20 M1 PO; +SYMBICORT 16010.2 GM INH
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
[2018-06-04 22:54] VITALS: BP 130/65
[2018-06-04] MEDS ORDERED: PREDNISONE20 M1 PO (23:09)
[2018-06-04] MEDS ORDERED: [UNRECOGNIZED DRUG - SUPPLY] (23:09)
[2018-06-04] MEDS ORDERED: PROAIR HFA8.5 GM INH (23:09)
== END 2018-06-04 23:18 ==
LOC: ERH 17:59
DX: J45.901 Unspecified asthma with (acute) exacerbation (principal); R07.89 Other chest pain
CPT/HCPCS: 1263; 1395